=== PATIENT | male | born 1945 | race Caucasian/White ===

== ENCOUNTER 2017-10-13 07:16 | Day surgery (SDC) | payer BC, MEDICARE ==
[~2017-10-13 07:16] MED LIST: Bupivacaine 0.25%/EPINEPHrine 1:200,000 30 ML SDV ONE; methylPREDNISolone Acetate 80 MG/ML SDV ONE
[2017-10-13] MEDS ORDERED: Lactated Ringers 1,000 ML IV SCH (08:00)
[2017-10-13] MEDS ORDERED: ceFAZolin 2 GM in Premix Bag 1 BAG IV ONE (08:30)
[2017-10-13] MEDS ORDERED: fentaNYL 250 MCG/5 ML SDV ONE (08:38)
[2017-10-13] MEDS ORDERED: Neostigmine Methylsulfate 1 MG/ML 5 ML Syringe ONE (08:40)
[2017-10-13] MEDS ORDERED: Propofol 200 MG/20 ML SDV ONE (08:40)
[2017-10-13] MEDS ORDERED: Glycopyrrolate 0.2 MG/ML 5 ML MDV ONE (08:40)
[2017-10-13] MEDS ORDERED: Dexamethasone 4 MG/ML SDV ONE (08:40)
[2017-10-13] MEDS ORDERED: Rocuronium 50 MG/5 ML Vial ONE (08:40)
[2017-10-13] MEDS ORDERED: Ondansetron 4 MG/2 ML SDV ONE (08:40)
[2017-10-13] MEDS ORDERED: Ketorolac 60 MG/2 ML SDV IM ONE (10:10)
--- NOTE | 2017-10-13 13:06 | OR ---
DATE OF PROCEDURE: 10/13/2017 PREOPERATIVE DIAGNOSES: 1. Tear, medial and lateral meniscus, left knee. 2. Osteoarthritic changes, grade 4, medial compartment. 3. Osteoarthritic changes, grade 2 and grade 3, lateral compartment. 4. Osteoarthritic changes, grade 3, patella. 5. Osteoarthritic changes, grade 3 and grade 4, intercondylar notch. 6. Synovial plica. POSTOPERATIVE DIAGNOSES: 1. Tear, medial lateral meniscus, left knee. 2. Osteoarthritic changes, grade 4, medial compartment. 3. Osteoarthritic changes, grade 2 and grade 3, lateral compartment. 4. Osteoarthritic changes, grade 3, patella. 5. Osteoarthritic changes, grade 3 and grade 4, intercondylar notch. 6. Synovial plica. PROCEDURE: Scope of left knee, shaving both meniscus, shaving medial and lateral condyle and intercondylar notch to a stable chondral base. ESTIMATED BLOOD LOSS: Minimum. COMPLICATIONS: None. INDICATIONS: Kings, a 71-year-old, had been having some bilateral knee pain, mostly on the left side, mechanical, going on for the last few years. Progressive in the last six months. No significant history of trauma, felt mostly in medial part of his knee, sometimes lateral fat pad. Weightbearing wakes him up at night. He had an MRI done, which shows moderate chondromalacia of all 3 compartments, possible tear of the body of the medial meniscus and degenerative changes of the lateral meniscus. Since he has failed conservative treatment, I discussed with the patient the possible risks, benefits, alternatives, and complications of surgery. The nature of the procedure was explained. All questions were answered. I had informed consent. DESCRIPTION OF PROCEDURE: The patient was taken to the OR. I did my markings at the left knee. He did receive antibiotics preop. The PLASTICS SUPERVISOR proceeded with general anesthesia. The patient was put on his back. A tourniquet was applied to the left proximal quadriceps. Sterile prep and dressing in the usual manner of the left knee. Time-out was taken to identify the correct surgical site and to make sure all instrumentation was present in the room. The leg was elevated, tourniquet was raised to 250 mmHg. The knee was bent 90 degrees. An anterolateral portal incision was done with the scalpel. After a blunt probe was entered, this was followed by irrigation and camera. Visualization of the medial and lateral gutters shows a fairly big membrane, crossing the medial condyle just below the patella shows a synovial plica. Intercondylar notch at the top was grade 1, but just below the top towards the ACL attachment, this was all grade 3 and grade 4 significant fraying of the cartilage. He had some grade 2 of the patella diffusely. The ACL was normal. The medial compartment significant arthritic changes, significant fraying and fissuring of the cartilage, grade 4 of the condyle, grade 3 of the plateau, degenerative tear mostly at the junction of the middle posterior horn of the medial meniscus with a medial tear. The lateral compartment shows grade 2 lateral plateau, grade 3 lateral condyle with fissuring and fraying of the cartilage and a mid horn lateral meniscal tear, mostly degenerative in nature. An incision was done at the anterior medial portal. After a blunt probe was entered with the shaver, dissection of the synovial plica, shaved the junction of the middle posterior horn of the medial meniscus, shaved the middle horn of the lateral meniscus, and shaved to a stable chondral base the internal femoral condyle, the lateral femoral condyle, and intercondylar notch. Once the surgery was done, the knee was washed with saline and dried. All instrumentation was removed. The skin was closed with nylon and 3-0 simple sutures. An injection of 9 mL of Marcaine 80 mg of Depo-Medrol was done, and a sterile dressing was applied. Tourniquet was released. Blood loss was minimal. There was no complication. The patient tolerated well the operation. He was sent to recovery room in good condition. Carlos Funes MD /[id number]
== END 2017-10-13 11:35 | disposition home or self-care (01) ==
LOC: JP.SDS 07:16
PROVIDERS: ATTEND Orthopaedic Surgery
DX: M23.222 Derangement of posterior horn of medial meniscus due to old tear or injury, left knee (principal); M23.262 Derangement of other lateral meniscus due to old tear or injury, left knee; M67.52 Plica syndrome, left knee; M17.12 Unilateral primary osteoarthritis, left knee; I10 Essential (primary) hypertension; Z79.82 Long term (current) use of aspirin; Z79.899 Other long term (current) drug therapy; F17.210 Nicotine dependence, cigarettes, uncomplicated
CPT/HCPCS: 29880; J0690; J1040; J1100; J1885; J2405; J2704; J2710; J3010; J7120

== ENCOUNTER 2017-10-26 21:24 | Emergency (ER) | payer BC ==
[2017-10-26] MEDS ORDERED: HYDROmorphone 1 MG/ML Syringe IVPUSH ONE ×2 (22:06→23:31)
[2017-10-26] MEDS ORDERED: Sodium Chloride 0.9% 10 ML Syringe FLUSH PRN (22:07)
--- NOTE | 2017-10-26 22:09 | EDM.PDOC ---
ED HPI GENERAL MEDICAL PROBLEM - General Chief Complaint: Lower Extremity Injury/Pain Stated Complaint: KNEE SURGERY IN PAIN Time Seen by Provider: 10/26/17 22:02 Source of Information: Reports: Patient, Family, Old Records, RN Notes Reviewed History Limitations: Reports: No Limitations - History of Present Illness INITIAL COMMENTS - FREE TEXT/NARRATIVE: 71-year-old gentleman presents emergency department today with complaint of left knee pain, he states the knee pain has progressively gotten worse over the last couple days yesterday was significantly bad he could not bear weight today was evaluated in the clinic concern for infection analysis fluid analysis was done which reveals 15,000 WBCs with 98% neutrophils he states the knee is warm is not had any fevers left knee Pain Score (Numeric/FACES): 7 - Related Data Allergies Allergy/AdvReac Type Severity Reaction Status Date / Time No Known Allergies Allergy Verified 10/26/17 21:51 Home Meds: Home Meds Aspirin [Halfprin] 81 mg PO DAILY 10/09/17 [History] Tadalafil [Cialis] 10 mg PO DAILY PRN 10/09/17 [History] Valsartan/Hydrochlorothiazide [Diovan Hct 160-12.5 mg Tab] 1 each PO DAILY 10/09 [History] Latanoprost [Latanoprost] 1 drop EYEBOTH DAILY 10/13/17 [History] Hydrocodone/Acetaminophen [Hydrocodon-Acetaminophn 10-325] 1 tab PO QID [History] Naproxen [Naproxen] 500 mg PO BID 10/26/17 [History] Past Medical History HEENT History: Reports: Glaucoma, Hard of Hearing Cardiovascular History: Reports: Hypertension Musculoskeletal History: Reports: Arthritis, Back Pain, Chronic, Fracture - Infectious Disease History Infectious Disease History: Reports: Chicken Pox, Measles, Mumps Other Infectious Disease History: pt not sure what he had as a child - Past Surgical History Musculoskeletal Surgical History: Reports: Amputation, Arthroscopic Knee Other Musculoskeletal Surgeries/Procedures:: left little finger Social & Family History - Family History Family Medical History: Noncontributory - Tobacco Use Smoking Status *Q: Current Every Day Smoker Years of Tobacco use: 53 Packs/Tins Daily: 0.2 Used Tobacco, but Quit: No Second Hand Smoke Exposure: No - Caffeine Use Caffeine Use: Reports: Coffee Caffeine Use Comment: in the mornings - Alcohol Use Days Per Week of Alcohol Use: 7 Number of Drinks Per Day: 3 Total Drinks Per Week: 21 - Recreational Drug Use Recreational Drug Use: No Review of Systems - Review of Systems Review Of Systems: See Below Constitutional: Denies: Fever Respiratory: Reports: No Symptoms Cardiovascular: Reports: No Symptoms Musculoskeletal: Reports: Joint Pain Skin: Reports: Pallor Neurological: Reports: No Symptoms ED EXAM, GENERAL - Physical Exam Exam: See Below Free Text/Narrative:: Examination of the knee does have a small amount ecchymosis on the medial aspect it is warm to the touch there is a moderate amount edema is noted is well. It is tender to the touch specifically along the joint line he cannot bear weight Exam Limited By: No Limitations General Appearance: Alert, WD/WN, No Apparent Distress Respiratory/Chest: No Respiratory Distress, Lungs Clear, Normal Breath Sounds, No Accessory Muscle Use, Chest Non-Tender Cardiovascular: Regular Rate, Rhythm, No Murmur Course - Vital Signs Last Recorded V/S: Last Vital Signs Temp 99.4 F 10/26/17 22:00 Pulse 87 10/26/17 22:00 Resp 20 10/26/17 22:00 BP 131/80 10/26/17 22:00 Pulse Ox 96 10/26/17 22:00 - Orders/Labs/Meds Orders: Active Orders 24 hr Category Date Time Status Peripheral IV Care [RC] . DIRECTED Care 10/26/17 22:07 Active Sodium Chloride 0.9% [Saline Flush] Med 10/26/17 22:07 Active 10 ml FLUSH ASDIRECTED PRN ceFAZolin [Ancef] 2 gm Med 10/26/17 23:06 Active Premix Bag 1 bag IV ONETIME Peripheral IV Insertion Adult [OM.PC] Urgent Oth 10/26/17 22:06 Ordered Medication Orders Hydromorphone HCl (Dilaudid) 1 mg IVPUSH ONETIME ONE Stop: 10/26/17 23:32 Cefazolin Sodium/Dextrose 2 gm (/ Premix) 50 mls @ 100 mls/hr IV ONETIME ONE Stop: 10/26/17 23:35 Last Admin: 10/26/17 23:14 Dose: 100 mls/hr Sodium Chloride (Saline Flush) 10 ml FLUSH ASDIRECTED PRN PRN Reason: Keep Vein Open Last Admin: 10/26/17 22:36 Dose: 10 ml Labs: Laboratory Tests 10/26/17 10/26/17 10/26/17 Range/Units 22:07 22:07 22:07 WBC 18.5 H (4.5-11.0) K/uL RBC 5.07 (4.30-5.90) M/uL Hgb 16.8 H (12.0-15.0) g/dL Hct 47.7 (40.0-54.0) % MCV 94 (80-98) fL MCH 33 H (27-31) pg MCHC 35 (32-36) % Plt Count 127 L (150-400) K/uL Neut % (Auto) 87 H (36-66) % Lymph % (Auto) 6 L (24-44) % Turner % (Auto) 7 H (2-6) % Eos % (Auto) 0 L (2-4) % Baso % (Auto) 0 (0-1) % Sodium 135 L (140-148) mmol/L Potassium 3.7 (3.6-5.2) mmol/L Chloride 98 L (100-108) mmol/L Carbon Dioxide 27 (21-32) mmol/L Anion Gap 13.7 (5.0-14.0) mmol/L BUN 11 (7-18) mg/dL Creatinine 1.0 (0.8-1.3) mg/dL Est Cr Clr Drug Dosing 72.16 mL/min Estimated GFR (MDRD) > 60 (>60) Glucose 136 H (74-106) mg/dL Lactic Acid 1.4 (0.4-2.0) mmol/L Calcium 9.0 (8.5-10.1) mg/dL Total Bilirubin 2.7 H (0.2-1.0) mg/dL AST 21 (15-37) U/L ALT 66 (12-78) U/L Alkaline Phosphatase 56 (46-116) U/L C-Reactive Protein 14.06 H (0.0-0.3) mg/dL Total Protein 7.3 (6.4-8.2) g/dL Albumin 3.8 (3.4-5.0) g/dL Globulin 3.5 (2.3-3.5) g/dL Albumin/Globulin Ratio 1.1 L (1.2-2.2) Meds: Medications Generic Name Dose Route Start Last Admin Trade Name Freq PRN Reason Stop Dose Admin Hydromorphone HCl 1 mg 10/26/17 23:31 Dilaudid IVPUSH 10/26/17 23:32 ONETIME ONE Cefazolin Sodium/Dextrose 2 gm 50 mls @ 100 mls/hr 10/26/17 23:06 10/26/17 23 :14 / Premix IV 10/26/17 23:35 100 mls/hr ONETIME ONE Administration Sodium Chloride 10 ml 10/26/17 22:07 10/26/17 22:36 Saline Flush FLUSH 10 ml ASDIRECTED PRN Administration Keep Vein Open Discontinued Medications Generic Name Dose Route Start Last Admin Trade Name Freq PRN Reason Stop Dose Admin Hydromorphone HCl 1 mg 10/26/17 22:06 10/26/17 22:14 Dilaudid IVPUSH 10/26/17 22:07 1 mg ONETIME ONE Administration Departure - Departure Time of Disposition: 23:34 Disposition: Home, Self-Care 01 Condition: Fair Clinical Impression: Left knee pain Qualifiers: Chronicity: acute Qualified Code(s): M25.562 - Pain in left knee - Discharge Information Referrals: Hi Whalen MD [Primary Care Provider] - Forms: ED Department Discharge Additional Instructions: Use Percocet as needed for pain control, please report to the [facility] clinic at 9:30 in the morning for further evaluation of your knee - My Orders Last 24 Hours: My Active Orders 10/26/17 22:06 Peripheral IV Insertion Adult [OM.PC] Urgent 10/26/17 22:07 Peripheral IV Care [RC] . DIRECTED Sodium Chloride 0.9% [Saline Flush] 10 ml FLUSH ASDIRECTED PRN 10/26/17 23:06 ceFAZolin [Ancef] 2 gm Premix Bag 1 bag IV ONETIME - Assessment/Plan Last 24 Hours: My Active Orders 10/26/17 22:06 Peripheral IV Insertion Adult [OM.PC] Urgent 10/26/17 22:07 Peripheral IV Care [RC] . DIRECTED Sodium Chloride 0.9% [Saline Flush] 10 ml FLUSH ASDIRECTED PRN 10/26/17 23:06 ceFAZolin [Ancef] 2 gm Premix Bag 1 bag IV ONETIME Plan: Assessment Acuity = acute Site and laterality = left knee pain concern for development of septic joint Etiology = probable bacterial cause Manifestations = none Location of injury = Home Lab values = WBC elevated 18.5 consistent leukocytosis, sodium low at 135 consistent hyponatremia total bilirubin elevated at 2.7 consistent with hyperbilirubinemia and CRP elevated at 14.06 Plan Called discussed case with orthopedics on-call Jovani Ashton recommended 2 g Ancef which she did receive here plan is to evaluate him in the morning in clinic with possible surgical intervention, he is to be at the clinic at 9:30 morning he was provided 10 Percocet 5/325 This note was dictated using [employer] voice recognition software please call with any questions on syntax or joel.
[2017-10-26] MEDS ORDERED: ceFAZolin 2 GM in Premix Bag 1 BAG IV ONE (23:06)
== END 2017-10-27 00:02 | disposition home or self-care (01) ==
LOC: JP.ED 21:24
DX: S80.02XA Contusion of left knee, initial encounter (principal); I10 Essential (primary) hypertension; F17.210 Nicotine dependence, cigarettes, uncomplicated; Z79.82 Long term (current) use of aspirin; Z79.899 Other long term (current) drug therapy; X58.XXXA Exposure to other specified factors, initial encounter
CPT/HCPCS: 36415; 80053; 83605; 85025; 86140; 96365; 96375; 96376; 99284; J0690; J1170; J7050

== ENCOUNTER 2018-05-20 23:55 | Emergency (ER) | payer BC | END 2018-05-21 00:10 | disposition left against medical advice (07) | LOC: JP.ED 23:55 | DX: Z53.21 Procedure and treatment not carried out due to patient leaving prior to being seen by health care provider (principal) ==

== ENCOUNTER 2018-05-28 12:55 | Emergency (ER) | payer BC ==
--- NOTE | 2018-05-28 15:02 | EDM.PDOC ---
ED HPI GENERAL MEDICAL PROBLEM - General Chief Complaint: Abdominal Pain Stated Complaint: ABDOMINAL PAIN Time Seen by Provider: 05/28/18 14:20 Source of Information: Reports: Patient History Limitations: Reports: No Limitations - History of Present Illness INITIAL COMMENTS - FREE TEXT/NARRATIVE: Kings is an alert and oriented 72 year old male presenting to the emergency room after being instructed to do so per [facility] provider. Kings reports he has been suffering from low abdominal pain which started with constipation, did not improve and he now has diverticulosis. He states he has been taking his antibiotics and eating a soft/bland diet as instructed. He has been taking antibiotics as directed since Thursday. He denies abdominal pain, fever, chills, nausea and vomiting. - Related Data Allergies Allergy/AdvReac Type Severity Reaction Status Date / Time No Known Allergies Allergy Verified 11/30/17 15:07 Home Meds: Home Meds Aspirin [Halfprin] 81 mg PO DAILY 10/09/17 [History] Valsartan/Hydrochlorothiazide [Diovan Hct 160-12.5 mg Tab] 1 each PO DAILY 10/09 [History] Latanoprost 1 drop EYEBOTH DAILY 10/13/17 [History] Ciprofloxacin HCl [Cipro] 500 mg PO BID 05/28/18 [History] Timolol Maleate [Timoptic 0.5% Ophth Soln] 1 drop TOP BID 05/28/18 [History] Vardenafil HCl [Levitra] 20 mg PO ASDIRECTED 05/28/18 [History] metroNIDAZOLE [Flagyl] 500 mg PO TID 05/28/18 [History] Past Medical History HEENT History: Reports: Glaucoma, Hard of Hearing Cardiovascular History: Reports: Hypertension Gastrointestinal History: Reports: Diverticulosis Musculoskeletal History: Reports: Arthritis, Back Pain, Chronic, Fracture - Infectious Disease History Infectious Disease History: Reports: Chicken Pox, Measles, Mumps Other Infectious Disease History: pt not sure what he had as a child - Past Surgical History GI Surgical History: Reports: Colon, Colonoscopy, Polypectomy Musculoskeletal Surgical History: Reports: Amputation, Arthroscopic Knee Other Musculoskeletal Surgeries/Procedures:: left little finger Social & Family History - Family History Family Medical History: Noncontributory - Caffeine Use Caffeine Use: Reports: Coffee Caffeine Use Comment: in the mornings - Recreational Drug Use Recreational Drug Use: No ED ROS GENERAL - Review of Systems Review Of Systems: See Below Constitutional: Denies: Fever, Chills, Malaise, Weakness HEENT: Reports: No Symptoms Respiratory: Reports: No Symptoms Cardiovascular: Reports: No Symptoms Endocrine: Reports: No Symptoms GI/Abdominal: Reports: Diarrhea, Other (He reports he does not have pain, however his stomach feels like it is rolling. ). Denies: Abdominal Pain, Anorexia, Black Stool, Bloody Stool, Constipation, Difficulty Swallowing, Distension, Hematemesis, Hematochezia, Nausea, Vomiting : Reports: No Symptoms Musculoskeletal: Reports: No Symptoms Skin: Reports: No Symptoms Neurological: Reports: No Symptoms Psychiatric: Reports: No Symptoms Hematologic/Lymphatic: Reports: No Symptoms Immunologic: Reports: No Symptoms ED EXAM, GI/ABD - Physical Exam Exam: See Below Text/Narrative:: Kings is an alert and oriented 72 year old male presenting to the emergency room as directed from his clinic visit at [facility] today. He has been treated for diverticulitis with oral ciprofloxacin and flagyl. He has been taking antibiotic as directed since Thursday afternoon. He has been eating a soft food diet since Thursday. He reports that he understood the clinic physician telling him to return to the clinic if he was not getting better. Today he states he is not feeling worse, but he is also not feeling better. He is maintaining. Exam Limited By: No Limitations General Appearance: Alert, WD/WN, No Apparent Distress Eyes: Bilateral: Normal Appearance, EOMI Ears: Normal External Exam, Normal Canal, Hearing Grossly Normal, Normal TMs Nose: Normal Inspection, Normal Mucosa, No Blood Throat/Mouth: Normal Inspection, Normal Gums, Normal Oropharynx, Normal Voice, No Airway Compromise Head: Atraumatic, Normocephalic Neck: Normal Inspection, Supple, Non-Tender, Full Range of Motion. No: Lymphadenopathy (R), Lymphadenopathy (L) Respiratory/Chest: No Respiratory Distress, Lungs Clear, Normal Breath Sounds, No Accessory Muscle Use, Chest Non-Tender Cardiovascular: Normal Peripheral Pulses, Regular Rate, Rhythm, No Edema, No Gallop, No Murmur, No Rub GI/Abdominal Exam: Normal Bowel Sounds, Soft, Non-Tender, No Organomegaly, No Distention, No Abnormal Bruit, No Mass. No: Guarding, Rigid, Rebound Back Exam: Normal Inspection, Full Range of Motion. No: CVA Tenderness (R), CVA Tenderness (L) Extremities: Normal Inspection, Normal Range of Motion, Non-Tender, No Pedal Edema, Normal Capillary Refill Neurological: Alert, Oriented, CN II-XII Intact, Normal Cognition, Normal Gait, Normal Reflexes, No Motor/Sensory Deficits Psychiatric: Normal Affect, Normal Mood Skin Exam: Warm, Dry, Intact, Normal Color, No Rash Lymphatic: No Adenopathy Course - Vital Signs Last Recorded V/S: Last Vital Signs Temp 36.4 C 05/28/18 14:13 Pulse 62 05/28/18 14:13 Resp 13 05/28/18 14:13 BP 127/80 05/28/18 14:13 Pulse Ox 97 05/28/18 14:13 - Orders/Labs/Meds Labs: Laboratory Tests 05/28/18 05/28/18 Range/Units 15:00 15:00 WBC 7.2 (4.5-11.0) K/uL RBC 4.82 (4.30-5.90) M/uL Hgb 15.8 H (12.0-15.0) g/dL Hct 43.9 (40.0-54.0) % MCV 91 (80-98) fL MCH 33 H (27-31) pg MCHC 36 (32-36) % Plt Count 218 (150-400) K/uL Neut % (Auto) 63 (36-66) % Lymph % (Auto) 26 (24-44) % Milam % (Auto) 10 H (2-6) % Eos % (Auto) 2 (2-4) % Baso % (Auto) 0 (0-1) % Sodium 138 L (140-148) mmol/L Potassium 3.8 (3.6-5.2) mmol/L Chloride 101 (100-108) mmol/L Carbon Dioxide 27 (21-32) mmol/L Anion Gap 13.8 (5.0-14.0) mmol/L BUN 14 (7-18) mg/dL Creatinine 1.2 (0.8-1.3) mg/dL Est Cr Clr Drug Dosing 57.45 mL/min Estimated GFR (MDRD) 60 (>60) Glucose 93 (74-106) mg/dL Calcium 8.8 (8.5-10.1) mg/dL C-Reactive Protein 3.02 H (0.0-0.3) mg/dL Patient lab work reviewed with patient and Dr. Mead. He will follow up with Dr. Mead in the clinic on June 01 at 15:30. Patient in agreement with plan. - Re-Assessments/Exams Free Text/Narrative Re-Assessment/Exam: 05/28/18 14:[address] Officer. We will obtain CBC, BMP, CRP. Departure - Departure Time of Disposition: 15:42 Disposition: Home, Self-Care 01 Condition: Good Clinical Impression: Diverticulosis - Discharge Information *PRESCRIPTION DRUG MONITORING PROGRAM REVIEWED*: Not Applicable *COPY OF PRESCRIPTION DRUG MONITORING REPORT IN PATIENT [place]IR[place]: Not Applicable Instructions: Diverticulosis Referrals: PCP,None [Primary Care Provider] - Forms: ED Department Discharge Additional Instructions: You have been evaluated and treated in the emergency room for diverticulosis. Your lab work and CT scan was reviewed with Dr. Mead. Continue to take your antibiotics as directed. Continue your probiotic. Push oral fluids to keep yourself hydrated. Avoid alcohol. Continue a soft bland diet until you see Dr. Mead next ThursdayJune 01 at 3:30pm in the [facility]. Telephone the emergency room tomorrow at [phone] from 11:10 am to 5:00pm to let us know how you are doing. Return to the emergency room for fevers, chills, worsening, severe pain, no bowel movement or passing gas. - Assessment/Plan Assessment:: Diverticulosis Continue antibiotic as directed Plan: Patient evaluated and treated in the emergency room for diverticulosis. Lab work and CT scan was reviewed with Dr. Mead. Continue antibiotics as directed. Continue probiotic. Push oral fluids to keep hydrated. Avoid alcohol. Continue a soft bland diet until seen by Dr. Mead next ThursdayJune 01 at 3:30pm in the [facility]. Telephone the emergency room tomorrow at [phone] from 11:10 am to 5:00pm to update us on his status. Return to the emergency room for fevers, chills, worsening, severe pain, no bowel movement or passing gas.
== END 2018-05-28 15:55 | disposition home or self-care (01) ==
LOC: JP.ED 12:55
DX: K57.90 Diverticulosis of intestine, part unspecified, without perforation or abscess without bleeding (principal); I10 Essential (primary) hypertension; Z79.82 Long term (current) use of aspirin; Z79.899 Other long term (current) drug therapy
CPT/HCPCS: 36415; 80048; 85025; 86140; 99284

== ENCOUNTER 2020-10-08 06:13 | Day surgery (SDC) | payer BC ==
[2020-10-08] MEDS ORDERED: Dextrose 5%-Lactated Ringers 1,000 ML IV SCH (06:45)
[2020-10-08] MEDS ORDERED: fentaNYL 100 MCG/2 ML SDV ONE (07:22)
[2020-10-08] MEDS ORDERED: Propofol 200 MG/20 ML SDV ONE (07:22)
[2020-10-08] MEDS ORDERED: Glycopyrrolate 0.2 MG/ML 2 ML SDV ONE (07:58)
[2020-10-08] MEDS ORDERED: Pantoprazole 40 MG Vial IVPUSH ONE (08:26)
--- NOTE | 2020-10-14 12:20 | OR ---
DATE OF PROCEDURE: 10/08/2020 SURGEON: Javier Alejo MD PREOPERATIVE DIAGNOSES: 1. Dysphagia referable to the distal esophagus. 2. Recent treatment for Helicobacter pylori infection. POSTOPERATIVE DIAGNOSES: 1. Dysphagia referable to the distal esophagus. 2. Recent history of Helicobacter pylori infection. 3. Small hiatal hernia associated with moderate reactive gastroesophageal reflux disease without stricture. 4. Large gastric polyp, proximal gastric antrum. 5. Diffuse mild gastritis. OPERATIVE PROCEDURE: Esophagogastroduodenoscopy with: 1. Biopsies of antrum for CLOtest. 2. Biopsy of esophagogastric junction for histologic evaluation ([id number]). 3. Gastric polypectomy ([id number]). ANESTHESIA: IV sedation. INDICATIONS FOR PROCEDURE: This is a 74-year-old presenting with some dysphagia referable to the distal esophagus. The patient recently was noted to have a positive H. pylori testing and underwent a 2-week course of antibiotics and proton pump inhibitors. He has been off the proton pump inhibitors now for around 2 weeks and continues to have some dysphagia referable to distal esophagus. Plan is to proceed with an upper GI endoscopy with biopsies and/or dilation as indicated. Potential risks including bleeding and perforation were discussed, and the patient wishes to proceed. DETAILS OF PROCEDURE: The patient was taken to the operating room and placed in a left lateral decubitus position. IV sedation was administered after which the upper GI endoscope was passed orally through the length of esophagus and into the stomach with retroflexion view of the fundus and thereafter through the pyloric channel and into the proximal duodenum. Findings included normal hypopharynx, larynx, upper esophageal sphincter, and esophageal body. At the EG junction, a small hiatal hernia measuring 1 to 2 cm was identified. There was quite active gastroesophageal reflux disease present with there being some edema and friability of the distal esophagus. No plaquing or stricturing was identified. There was some upward extension of the gastroesophageal junction mucosal line slightly above the upper gastric folds suggestive of some possible element of [place] esophagus. Within the stomach, there was more or less an area of diffuse mild gastritis within the proximal antrum. There was an elongated gastric polyp on a thin pedicle. This measured around 3 cm in maximal dimension. Otherwise, the pyloric channel and proximal duodenum were unremarkable. At this point, biopsies were taken from the antrum and sent for CLOtest for H. pylori. Multiple biopsies were then obtained from esophagogastric junction and sent for histologic evaluation. Following this, the base of the polyp was then encircled with a cautery snare and excised. This was then retrieved through a basket, and upon its removal, the gastroscope was reinserted. Good clearance of the base of the polyp was identified, and hemostasis was satisfactory, and the procedure then concluded. At this point, we will begin the patient on Protonix 40 mg daily. He will be given some IV Protonix in recovery room for initiation of the gastroesophageal reflux disease treatment. We will see the patient back on 10/17/2020 to review the findings and set up a treatment plan from that point forward. Javier Alejo MD /[id number]
== END 2020-10-08 09:38 | disposition home or self-care (01) ==
LOC: JP.SDS 06:13
PROVIDERS: ATTEND Surgery
DX: K31.7 Polyp of stomach and duodenum (principal); K29.50 Unspecified chronic gastritis without bleeding; K44.9 Diaphragmatic hernia without obstruction or gangrene; K21.9 Gastro-esophageal reflux disease without esophagitis
CPT/HCPCS: 87081; 88305; C9113; J2704; J3010; J3490; J7121

== ENCOUNTER 2021-04-02 05:47 | Day surgery (SDC) | payer BC ==
[2021-04-02] MEDS ORDERED: Dextrose 5%-Lactated Ringers 1,000 ML IV SCH (06:45)
[2021-04-02] MEDS ORDERED: Propofol 200 MG/20 ML SDV ONE (07:12)
[2021-04-02] MEDS ORDERED: Midazolam 1 MG/ML 2 ML SDV ONE (07:12)
[2021-04-02] MEDS ORDERED: fentaNYL 100 MCG/2 ML SDV ONE (07:12)
[2021-04-02] MEDS ORDERED: Pantoprazole 40 MG Vial IVPUSH ONE (07:31)
--- NOTE | 2021-04-14 13:05 | OR ---
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 POSTOPERATIVE DIAGNOSES: 1. No persistent or recurrent polyp. 2. [id number] antral gastritis and mild proximal duodenitis. OPERATIVE PROCEDURE: Esophagogastroduodenoscopy with antral biopsies for CLOtest. ANESTHESIA: IV sedation. INDICATION FOR PROCEDURE: A 75-year-old status post upper endoscopy recently where a large polyp was removed. This turned out to be a hyperplastic polyp and the patient is to undergo a followup endoscopy. We will ascertain whether or not there is any persistence or recurrence of the polyp. Potential risks of the procedure including bleeding and perforation were discussed, and the patient wishes to proceed. DETAILS OF PROCEDURE: The patient was taken to the operating room and placed in a left lateral decubitus position. IV sedation was administered, after which the upper GI endoscope was passed orally through the length of the esophagus and into the stomach with retroflexion view of the fundus, thereafter through the pyloric channel into the junction of third and fourth portions of the duodenum. Findings included a normal hypopharynx, larynx, upper esophageal sphincter, and esophageal body. At the EG junction, no significant hiatal hernia was present. In the stomach, the previously noted polyp was now entirely absent, but no signs of recurrence. The patient had some [id number] gastritis involving the distal body and antrum, and in the duodenal bulb there was involvement of some mild duodenitis beyond which the duodenal findings normalized. At this point, biopsies were obtained for CLOtest for H pylori. Minimal bleeding from the biopsy site was seen and the procedure then concluded. At this point, the patient should likely stay on Protonix long-term given the persistent gastritis. If CLOtest is positive, he will be contacted and initiated on an anti-H pylori treatment regimen. Javier Alejo MD /[id number]
== END 2021-04-02 09:08 | disposition home or self-care (01) ==
LOC: JP.SDS 05:47
PROVIDERS: ATTEND Surgery
DX: K29.90 Gastroduodenitis, unspecified, without bleeding (principal); I10 Essential (primary) hypertension; F17.200 Nicotine dependence, unspecified, uncomplicated; Z86.19 Personal history of other infectious and parasitic diseases
CPT/HCPCS: 43239; 87081; C9113; J2250; J2704; J3010; J7121

== ENCOUNTER 2023-10-30 08:01 | Day surgery (SDC) | payer MEDICARE, BC ==
[~2023-10-30 08:01] MED LIST changes: -Bupivacaine 0.25%/EPINEPHrine 1:200,000 30 ML SDV ONE; +Propofol 200 MG/20 ML SDV ONE; +fentaNYL 100 MCG/2 ML SDV ONE; -methylPREDNISolone Acetate 80 MG/ML SDV ONE
[2023-10-30] MEDS ORDERED: Lactated Ringers 1,000 ML IV SCH (08:30)
[2023-10-30 10:23] LABS: A/G RATIO 1.4 (1.2-2.2); ALANINE AMINOTRANSFERASE,ALT 61 U/L (12-78); ALKALINE PHOSPHATASE 55 U/L (46-116); ANION GAP 8.6 mmol/L (5.0-14.0); ASPARTATE AMNIOTRANSFERASE,AST 31 U/L (15-37); BILIRUBIN DIRECT 0.36 mg/dL (0.0-0.2); BILIRUBIN TOTAL 2.1 mg/dL (0.2-1.0); BLOOD UREA NITROGEN,BUN 13 mg/dL (7-18); CALCIUM 8.7 mg/dL (8.5-10.1); CARBON DIOXIDE,CO2 29 mmol/L (21-32); CHLORIDE,CL 103 mmol/L (100-108); CREATININE 1.1 mg/dL (0.8-1.3); ESTIMATED GFR 69 mL/min (>60); GLUCOSE RANDOM 107 mg/dL (74-106); POTASSIUM,K 3.8 mmol/L (3.6-5.2); PROTEIN TOTAL,TP 6.8 g/dL (6.4-8.2); SODIUM,NA 141 mmol/L (140-148)
[2023-10-30] MEDS ORDERED: Iopamidol 612 MG/ML 100 ML Bottle IV ONE (12:59)
[2023-10-30] MEDS ORDERED: Sodium Chloride 0.9% 80 ML IV SCH (13:00)
[2023-10-30] MEDS ORDERED: Propofol 200 MG/20 ML SDV ONE (14:25)
== END 2023-10-30 15:40 | disposition home or self-care (01) ==
LOC: JP.SDS 08:01
PROVIDERS: ATTEND Student in an Organized Health Care Education/Training Program
DX: Z12.11 Encounter for screening for malignant neoplasm of colon (principal); D12.0 Benign neoplasm of cecum; D13.1 Benign neoplasm of stomach; K29.50 Unspecified chronic gastritis without bleeding; K21.9 Gastro-esophageal reflux disease without esophagitis; K57.30 Diverticulosis of large intestine without perforation or abscess without bleeding; K51.40 Inflammatory polyps of colon without complications
CPT/HCPCS: 36415; 43239; 45380; 45385; 74177; 80053; 82248; 88305; 88342; J2704; J3010; J3490; J7120; Q9967

== ENCOUNTER 2024-11-30 05:54 | Day surgery (SDC) | payer MEDICARE, BC ==
[2024-11-30 06:24] LABS: HEMATOCRIT 44.4 % (38.4-49.7); HEMOGLOBIN 16.4 g/dL (12.9-16.9); MEAN CORPUSCULAR HEMOGLOBIN 33.7 pg (31.6-35.5); MEAN CORPUSCULAR HGB CONC 36.9 g/dL (31.6-35.5); MEAN CORPUSCULAR VOLUME 91.4 fL (81.4-99.0); RED BLOOD CELL COUNT 4.86 M/uL (4.14-5.76); WHITE BLOOD CELL COUNT,WBC 8.2 K/uL (3.2-11.0)
[2024-11-30] MEDS: Lactated Ringers 1,000 ML IV SCH (06:41)
[2024-11-30 06:45] LABS: A/G RATIO 1.2 (1.2-2.2); ALANINE AMINOTRANSFERASE,ALT 76 U/L (12-78); ALBUMIN 3.6 g/dL (3.4-5.0); ALKALINE PHOSPHATASE 57 U/L (46-116); ASPARTATE AMNIOTRANSFERASE,AST 27 U/L (15-37); BILIRUBIN TOTAL 1.5 mg/dL (0.2-1.0); BLOOD UREA NITROGEN,BUN 15 mg/dL (7-18); CALCIUM 8.3 mg/dL (8.5-10.1); CARBON DIOXIDE,CO2 29 mmol/L (21-32); CHLORIDE,CL 104 mmol/L (100-108); CREATININE 1.3 mg/dL (0.8-1.3); EST CRCL DRUG DOSING (CG) 49.88 mL/min; ESTIMATED GFR 56 mL/min (>60); GLUCOSE RANDOM 111 mg/dL (74-106); POTASSIUM,K 3.5 mmol/L (3.6-5.2); PROTEIN TOTAL,TP 6.6 g/dL (6.4-8.2); SODIUM,NA 141 mmol/L (140-148)
[2024-11-30 06:47] LABS: ANION GAP 11.5 mmol/L (5.0-14.0)
[2024-11-30] MEDS: Nozin Nasal Sanitizer NASBOTH ONE (06:48)
[2024-11-30] MEDS ORDERED: Propofol 200 MG/20 ML SDV ONE (07:09)
[2024-11-30] MEDS ORDERED: fentaNYL 100 MCG/2 ML SDV ONE (07:09)
[2024-11-30] MEDS ORDERED: Midazolam 1 MG/ML 2 ML SDV ONE (07:09)
[2024-11-30] MEDS ORDERED: Bupivacaine 0.5% 30 ML SDV ONE (07:10)
[2024-11-30] MEDS: ceFAZolin 2 GM in Premix Bag 1 BAG IV ONE (07:45)
[2024-11-30] MEDS ORDERED: Ondansetron 4 MG/2 ML SDV ONE (08:08)
[2024-11-30] MEDS ORDERED: Dexamethasone 4 MG/ML SDV ONE (08:08)
[2024-11-30] MEDS: Acetaminophen/HYDROcodone 325-5 MG Tab PO PRN (11:51)
== END 2024-11-30 12:30 | disposition home or self-care (01) ==
LOC: JP.SDS 05:54
PROVIDERS: ATTEND Specialist
DX: M75.101 Unspecified rotator cuff tear or rupture of right shoulder, not specified as traumatic (principal); M75.41 Impingement syndrome of right shoulder; I10 Essential (primary) hypertension; F17.200 Nicotine dependence, unspecified, uncomplicated
CPT/HCPCS: 01630; 29826; 29827; 36415; 80053; 85027; A9270; C1713; J0665; J0690; J1100; J2250; J2405; J2704; J3010; J7120

== ENCOUNTER 2025-01-18 08:11 | Day surgery (SDC) | payer MEDICARE, BC ==
[2025-01-18] MEDS ORDERED: fentaNYL 100 MCG/2 ML SDV ONE (08:17)
[2025-01-18] MEDS ORDERED: Propofol 200 MG/20 ML SDV ONE (08:17)
[2025-01-18] MEDS: Lactated Ringers 1,000 ML IV SCH (08:38)
== END 2025-01-18 10:50 | disposition home or self-care (01) ==
LOC: JP.SDS 08:11
PROVIDERS: ATTEND Surgery
DX: R13.10 Dysphagia, unspecified (principal); K22.89 Other specified disease of esophagus; I10 Essential (primary) hypertension; F17.200 Nicotine dependence, unspecified, uncomplicated; Z88.8 Allergy status to other drugs, medicaments and biological substances
CPT/HCPCS: 00731-QZ; J2704; J3010; J7120